=== PATIENT | female | born 1995 | race Caucasian/White ===

== ENCOUNTER 2019-10-08 01:28 | Inpatient (IN) ==
[2019-10-08 02:16] LABS: Hemoglobin 12.6 g/dL (11.5-15.4); Red Cell Distribution Width 12.7 % (11.5-14.5)
[2019-10-08 02:18] LABS: Basophils % 0.9 %; Hematocrit 39.2 % (35.3-44.9); Lymphocytes % 44.8 %; Mean Corpuscular HGB Conc 32.1 g/dL (31.6-35.5); Mean Corpuscular Hemoglobin 27.7 pg (28.0-33.3); Mean Corpuscular Volume 86.2 fL (83.0-100.0); Mean Platelet Volume 11.6 fL (9.4-12.4); Monocytes # 0.2 K/mcL (0.0-1.3); Monocytes % 7.2 %; Red Blood Count 4.55 M/mcL (3.82-4.97); Segmented Neutrophils % 47.1 %; White Blood Count 2.2 K/mcL (4.3-11.1)
[2019-10-08 02:21] LABS: INR 1.2; Prothrombin Time 13.4 Seconds (9.4-12.1)
[2019-10-08 02:23] LABS: Activated Partial Thrombo Time 32.7 Seconds (26.0-36.0)
[2019-10-08 02:32] LABS: Platelet Count 81 K/mcL (140-400)
[2019-10-08] MEDS ORDERED: Isovue-370 500 ML BOTTLE IVP ONE (02:32)
[2019-10-08 02:38] LABS: Alanine Aminotransferase 11 Units/L (7-52); Albumin 4.2 g/dL (3.5-5.7); Albumin/Globulin Ratio 1.4 (1.1-2.2); Alkaline Phosphatase 61 Units/L (34-104); Aspartate Amino Transferase 17 Units/L (13-39); BUN/Creatinine Ratio 17 (6-26); Bilirubin,Direct 0.1 mg/dL (0.0-0.2); Bilirubin,Indirect 0.3 mg/dL (0.0-1.0); Bilirubin,Total 0.4 mg/dL (0.3-1.0); Blood Urea Nitrogen 12 mg/dL (6-20); C-Reactive Protein 14 mg/L (Less than 10); Calcium 8.4 mg/dL (8.6-10.3); Carbon Dioxide 20 mEq/L (23-29); Chloride 106 mEq/L (98-107); Globulin 2.9 g/dL (2.4-3.5); Glucose 86 mg/dL (70-105); Lactate Dehydrogenase 151 Units/L (140-271); Osmolality,Calculated 283 (280-300); Potassium 3.5 mEq/L (3.5-5.1); Sodium 137 mEq/L (136-145); Total Protein 7.1 g/dL (6.4-8.9); Troponin I < 0.03 ng/mL (< 0.04); eGFR For African Americans > 60 (> 60); eGFR For Non-African Americans > 60 (> 60)
[2019-10-08 02:56] LABS: Ferritin 40 ng/mL (10-120)
[2019-10-08] MEDS ORDERED: cefTRIAXone 1,000 MG in Water for inj. (sterile) 10 ML IVP ONE (04:29)
[2019-10-08] MEDS ORDERED: Azithromycin 500 MG in 0.9 % Sodium Chloride 250 ML IVPB ONE (04:29)
[2019-10-08] MEDS ORDERED: Naloxone 0.4 MG/ML INJ IVP PRN (04:42)
[2019-10-08] MEDS ORDERED: Ondansetron 4 MG/2 ML VIAL ONE (06:22)
[2019-10-08] MEDS: Ondansetron 4 MG/2 ML VIAL IVP PRN ×2 (06:27→21:03)
[2019-10-08] MEDS ORDERED: *HR* Heparin 5,000 UNIT/ML VIAL SQ SCH ×2 (09:00→15:00)
[2019-10-08] MEDS ORDERED: Ondansetron 4 MG/2 ML VIAL IVP SCH (12:00)
[2019-10-08] MEDS ORDERED: METHYLPHENIDATE HCL 36 MG PO SCH (12:15)
[2019-10-08] MEDS: Acetaminophen 325 MG TABLET PO PRN ×2 (12:28→21:03)
[2019-10-08] MEDS: METHYLPHENIDATE 36 MG PO SCH (12:45)
[2019-10-09] MEDS ORDERED: 0.9 % Sodium Chloride 1,000 ML IVC ONE (00:59)
[2019-10-09] MEDS ORDERED: Ondansetron 4 MG/2 ML VIAL IVP PRN (01:00)
[2019-10-09] MEDS: Acetaminophen 325 MG TABLET PO PRN ×2 (03:05→15:39)
[2019-10-09 03:55] LABS: Hemoglobin 11.9 g/dL (11.5-15.4); Red Cell Distribution Width 12.6 % (11.5-14.5)
[2019-10-09 03:57] LABS: Hematocrit 36.1 % (35.3-44.9); Immature Platelets 4.2 % (1.1-6.1); Lymphocytes # 0.8 K/mcL (0.6-4.6); Lymphocytes % 40.8 %; Mean Corpuscular Hemoglobin 28.3 pg (28.0-33.3); Mean Corpuscular Volume 85.7 fL (83.0-100.0); Mean Platelet Volume 11.7 fL (9.4-12.4); Monocytes # 0.1 K/mcL (0.0-1.3); Red Blood Count 4.21 M/mcL (3.82-4.97); Segmented Neutrophils % 52.2 %
[2019-10-09 03:58] LABS: Platelet Count 82 K/mcL (140-400)
[2019-10-09 04:03] LABS: BUN/Creatinine Ratio 17 (6-26); Blood Urea Nitrogen 11 mg/dL (6-20); Calcium 8.5 mg/dL (8.6-10.3); Carbon Dioxide 21 mEq/L (23-29); Chloride 109 mEq/L (98-107); Glucose 116 mg/dL (70-105); Osmolality,Calculated 286 (280-300); Potassium 3.2 mEq/L (3.5-5.1); Sodium 138 mEq/L (136-145); eGFR For African Americans > 60 (> 60); eGFR For Non-African Americans > 60 (> 60)
[2019-10-09] MEDS: *HR* Enoxaparin 40 MG/0.4 ML SYRINGE SQ SCH (04:50)
[2019-10-09] MEDS ORDERED: Ringers Solution, Lactated 1,000 ML IVC SCH (08:30)
[2019-10-09] MEDS: METHYLPHENIDATE 36 MG PO SCH (08:32)
[2019-10-09] MEDS ORDERED: *HR* Promethazine 25 MG/ML VIAL IVP PRN (10:12)
[2019-10-09] MEDS: dexAMETHasone 4 MG TABLET PO SCH (15:32)
[2019-10-09] MEDS: Ringers Solution, Lactated 1,000 ML IVC SCH (19:36)
[2019-10-09] MEDS: Ondansetron 4 MG/2 ML VIAL IVP PRN (19:43)
[2019-10-10] MEDS: Acetaminophen 325 MG TABLET PO PRN ×2 (00:09→12:43)
[2019-10-10] MEDS: Ringers Solution, Lactated 1,000 ML IVC SCH ×2 (03:34→10:12)
[2019-10-10 04:04] LABS: Red Cell Distribution Width 12.4 % (11.5-14.5)
[2019-10-10 04:06] LABS: Hematocrit 36.9 % (35.3-44.9); Hemoglobin 11.9 g/dL (11.5-15.4); Immature Platelets 7.1 % (1.1-6.1); Lymphocytes # 0.4 K/mcL (0.6-4.6); Lymphocytes % 29.2 %; Mean Corpuscular HGB Conc 32.2 g/dL (31.6-35.5); Mean Corpuscular Volume 86.8 fL (83.0-100.0); Monocytes # 0.1 K/mcL (0.0-1.3); Monocytes % 6.9 %; Neutrophils # 0.8 K/mcL (1.6-8.9); Red Blood Count 4.25 M/mcL (3.82-4.97); Segmented Neutrophils % 63.9 %; White Blood Count 1.3 K/mcL (4.3-11.1)
[2019-10-10 04:14] LABS: Platelet Count 88 K/mcL (140-400)
[2019-10-10 04:43] LABS: % Iron Saturation 8 % (15-50); BUN/Creatinine Ratio 16 (6-26); Blood Urea Nitrogen 9 mg/dL (6-20); Calcium 8.6 mg/dL (8.6-10.3); Carbon Dioxide 23 mEq/L (23-29); Chloride 110 mEq/L (98-107); Chol/HDL Ratio 3.4 (0-4.9); Cholesterol 119 mg/dL (< 200); Ferritin 47 ng/mL (10-120); Glucose 160 mg/dL (70-105); HDL Cholesterol 35 mg/dL (40-59); Iron 28 mcg/dL (50-170); LDL Cholesterol,Calculated 75 mg/dL (< 100); Osmolality,Calculated 290 (280-300); Potassium 4.5 mEq/L (3.5-5.1); Sodium 139 mEq/L (136-145); Transferrin 236 mg/dL (203-362); Triglycerides 43 mg/dL (< 150); eGFR For African Americans > 60 (> 60); eGFR For Non-African Americans > 60 (> 60)
[2019-10-10 04:57] LABS: Platelet Estimate Decreased (Normal)
[2019-10-10] MEDS: *HR* Enoxaparin 40 MG/0.4 ML SYRINGE SQ SCH (05:35)
[2019-10-10] MEDS: dexAMETHasone 4 MG TABLET PO SCH (08:19)
[2019-10-10] MEDS: METHYLPHENIDATE 36 MG PO SCH (08:20)
[2019-10-10] MEDS ORDERED: Ringers Solution, Lactated 1,000 ML IVC ONE (11:56)
[2019-10-10] MEDS ORDERED: Ringers Solution, Lactated 1,000 ML IVC SCH (11:56)
[2019-10-10] MEDS ORDERED: Benzonatate 100 MG CAPSULE PO PRN (12:23)
[2019-10-10] MEDS: Ondansetron 4 MG/2 ML VIAL IVP PRN (12:43)
[2019-10-10] MEDS ORDERED: Ondansetron ODT 4 MG TAB.RAPDIS SL PRN (13:18)
[2019-10-10] MEDS: Famotidine 20 MG TABLET PO SCH ×2 (13:55→19:54)
[2019-10-11 04:21] LABS: Hemoglobin 11.2 g/dL (11.5-15.4); Immature Granulocytes % 0.4 % (0-4); Mean Platelet Volume 11.9 fL (9.4-12.4); Red Cell Distribution Width 12.4 % (11.5-14.5)
[2019-10-11 04:22] LABS: Basophils % 0.4 %; Eosinophils % 0.4 %; Hematocrit 35.3 % (35.3-44.9); Immature Platelets 8.7 % (1.1-6.1); Lymphocytes # 0.9 K/mcL (0.6-4.6); Lymphocytes % 34.2 %; Mean Corpuscular HGB Conc 31.7 g/dL (31.6-35.5); Mean Corpuscular Hemoglobin 27.4 pg (28.0-33.3); Mean Corpuscular Volume 86.3 fL (83.0-100.0); Monocytes # 0.2 K/mcL (0.0-1.3); Monocytes % 7.8 %; Neutrophils # 1.5 K/mcL (1.6-8.9); Red Blood Count 4.09 M/mcL (3.82-4.97); Segmented Neutrophils % 56.8 %; White Blood Count 2.7 K/mcL (4.3-11.1)
[2019-10-11 04:26] LABS: Platelet Count 91 K/mcL (140-400)
[2019-10-11 04:33] LABS: BUN/Creatinine Ratio 21 (6-26); Blood Urea Nitrogen 12 mg/dL (6-20); Calcium 8.5 mg/dL (8.6-10.3); Carbon Dioxide 24 mEq/L (23-29); Chloride 109 mEq/L (98-107); Glucose 99 mg/dL (70-105); Osmolality,Calculated 292 (280-300); Potassium 3.9 mEq/L (3.5-5.1); Sodium 141 mEq/L (136-145); eGFR For African Americans > 60 (> 60); eGFR For Non-African Americans > 60 (> 60)
[2019-10-11] MEDS: *HR* Enoxaparin 40 MG/0.4 ML SYRINGE SQ SCH (06:45)
[2019-10-11] MEDS: Acetaminophen 325 MG TABLET PO PRN (08:17)
[2019-10-11] MEDS: dexAMETHasone 4 MG TABLET PO SCH (08:17)
[2019-10-11] MEDS: Famotidine 20 MG TABLET PO SCH (08:17)
[2019-10-11] MEDS: METHYLPHENIDATE 36 MG PO SCH (08:19)
[2019-10-11 08:32] VITALS: BP 101/64
== END 2019-10-11 14:02 | disposition home or self-care (01) | DRG 177 ==
LOC: 2NENU 01:28 → EMEROOARM 01:28 → 2NENU 04:48
PROVIDERS: ADMIT Internal Medicine; ATTEND Internal Medicine